=== PATIENT | male | born 1965 | race Caucasian/White ===

== ENCOUNTER 2018-12-04 17:23 | Inpatient (IN) | payer OTHER ==
[~2018-12-04] VITALS: Ht 182.9 cm; Wt 86.2 kg
[2018-12-04 17:58] LABS: BASOPHILS % (AUTO) 0.4 % (0.0-5.0); EOSINOPHILS % (AUTO) 0.8 % (0.0-8.0); LYMPHOCYTES % (AUTO) 13.9 % (21.0-51.0); MEAN CORPUSCULAR HEMOGLOBIN 33.7 pg (27.0-33.0); MEAN CORPUSCULAR HGB CONC 34.7 g/dL (32.0-36.0); MEAN CORPUSCULAR VOLUME 97.3 fL (79-99); MONOCYTES % (AUTO) 12.1 % (3.0-13.0); NEUTROPHILS % (AUTO) 72.8 % (40.0-77.0); NUCLEATED RED BLOOD CELLS 0.1 % (0.0-0.19); PLATELET COUNT (AUTO) 245 K/uL (130-400); RED BLOOD CELL COUNT(AUTO) 6.17 MIL/uL (4.50-6.20); RED CELL DISTRIBUTION WIDTH 13.1 % (11.0-15.5); WHITE BLOOD COUNT (AUTO) 13.1 K/uL (4.8-10.8)
[2018-12-04 18:12] LABS: INR 1.05 (0.85-1.15); PARTIAL THROMBOPLASTIN TIME 26.6 SEC (26.3-35.5)
[2018-12-04] MEDS ORDERED: SODIUM CHLORIDE 0.9% 1000ML 1,000 ML IV ONE ×2 (18:21→20:54)
[2018-12-04 18:24] LABS: AMYLASE 40 U/L (25-115); LIPASE 180 U/L (114-286)
[2018-12-04 18:39] LABS: ALBUMIN 3.4 g/dL (3.5-5.0); BILIRUBIN,TOTAL 1.7 mg/dL (0.2-1.0); CREATININE 2.4 mg/dL (0.5-1.5); TOTAL PROTEIN, SERUM 7.3 g/dL (6.0-8.3)
[2018-12-04 18:42] LABS: POTASSIUM 2.8 mmol/L (3.5-5.1)
[2018-12-04] MEDS ORDERED: M.V.I. IV [ADULT] 10 ML, THIAMINE HCL 100 MG, FOLIC ACID 1 MG in SODIUM CHLORIDE 0.9% 1... IV SCH (18:45)
[2018-12-04] MEDS ORDERED: IPRATROPIUM/ALBUTEROL SULFATE 3 ML SOLUTION IH ONE (18:50)
[2018-12-04 18:55] LABS: APPEARANCE,URINE Cloudy (CLEAR); BILIRUBIN,URINE Moderate (NEGATIVE); COLOR,URINE Dark Yellow (YELLOW); GLUCOSE, URINE (UA) Negative (NEGATIVE); KETONES,URINE Trace mg/dL (NEGATIVE); LEUKOCYTE ESTERASE ,URINE Small (NEGATIVE); NITRATE,URINE Negative (NEGATIVE); OCCULT BLOOD,URINE Small (NEGATIVE); PH,URINE 5.5 (5.0-8.0); PROTEIN,URINE 300 mg/dL (NEGATIVE)
[2018-12-04 19:04] LABS: AMPHET/METH SCREEN,URINE NEGATIVE (NEGATIVE); BARBITURATE SCREEN, URINE NEGATIVE (NEGATIVE); BENZODIAZEPINES SCREEN,URINE NEGATIVE (NEGATIVE); CANNABINOID SCREEN,URINE POSITIVE (NEGATIVE); COCAINE SCREEN,URINE NEGATIVE (NEGATIVE); OPIATE SCREEN,URINE NEGATIVE (NEGATIVE); PHENCYCLIDINE SCREEN,URINE NEGATIVE (NEGATIVE)
[2018-12-04 19:10] LABS: BACTERIA,URINE Moderate /HPF (None Seen); MUCUS,URINE Few LPF (None Seen)
[2018-12-04] MEDS ORDERED: POTASSIUM CHLORIDE 20 MEQ ERTAB PO ONE (19:18)
[2018-12-04] MEDS ORDERED: SODIUM CHLORIDE 0.9% 1000ML 2,000 ML IV ONE (19:18)
[2018-12-04] MEDS ORDERED: CEFTRIAXONE SODIUM 1 GM ONE (19:28)
[2018-12-04] MEDS ORDERED: LEVOFLOXACIN 500 MG/D5W 100 ML 100 ML ONE (19:28)
[2018-12-04] MEDS ORDERED: SODIUM CHLORIDE 0.9% 1000ML 1,000 ML IV SCH (21:00)
[2018-12-04] MEDS ORDERED: LIDOCAINE HCL-MPF 1% 2ML VIAL IJ PRN (21:45)
[2018-12-04] MEDS ORDERED: POTASSIUM CHLORIDE 10% ELIXIR 20 MEQ/15 ML UDCUP PO PRN (21:45)
[2018-12-04 22:30] VITALS: BP 155/105
[2018-12-04] MEDS: POTASSIUM CHLORIDE 20 MEQ ERTAB PO PRN (23:47)
--- NOTE | 2018-12-05 00:17 | NUR ---
PAGED MD LOUIS SPOKE WITH SHAKER WASHER REGARDING COMPLAINT OF PATIENT FOR ACID REFLUX, ANY MEDICATION FOR SLEEPING, AND COUGH/CONGESTION MEDICATION. PATIENT IS ALERT ORIENTED X 4, PT DENIED ANY PAIN.PT DENIED ANY CHEST PAIN, DIZINESS NOR DYSPNEA. NOT IN RESPIRATORY DISTRESS. NO HOME MEDICATION AT BEDSIDE, PENDING TO BE BROUGHT HERE BY RELATIVE. PENDING FOR MD LOUIS TO CALL BACK
[2018-12-05] MEDS: POTASSIUM CHLORIDE 20 MEQ ERTAB PO PRN ×4 (01:44→15:28)
--- NOTE | 2018-12-05 02:00 | NUR ---
KIMMY SULLIVAN SPOKE WITH RN MELINDA FROM ED, PT RECEIVED AND COMPLETED THE ORDERED IV BANANA BAG,
[2018-12-05 03:42] VITALS: BP 154/95
[2018-12-05 04:47] LABS: HEMATOCRIT 51.2 % (42-54); MEAN CORPUSCULAR HEMOGLOBIN 34.4 pg (27.0-33.0); MEAN CORPUSCULAR HGB CONC 35.5 g/dL (32.0-36.0); NUCLEATED RED BLOOD CELLS 0.2 % (0.0-0.19); PLATELET COUNT (AUTO) 207 K/uL (130-400); RED BLOOD CELL COUNT(AUTO) 5.28 MIL/uL (4.50-6.20); RED CELL DISTRIBUTION WIDTH 13.2 % (11.0-15.5); WHITE BLOOD COUNT (AUTO) 9.4 K/uL (4.8-10.8)
[2018-12-05 05:00] LABS: CREATININE 2.2 mg/dL (0.5-1.5)
[2018-12-05 05:07] LABS: POTASSIUM 2.8 mmol/L (3.5-5.1)
[2018-12-05] MEDS: POTASSIUM CHLORIDE 20MEQ/100ML 100 ML IV PRN ×2 (05:27→12:15)
[2018-12-05] MEDS ORDERED: GUAIFENESIN-CODEINE 5 ML SYRUP PO PRN (05:45)
--- NOTE | 2018-12-05 06:00 | NUR ---
md campbell CALLED BACK AFTER MULTIPLE ATTEMPTS PAGING THE ANSWERING SERVICE. INFORMED MD CAMPBELL ABOUT LATEST POTASSIUM 2.8. ASKED MD CAMPBELL IF HE WANTS MAGNESIUM LEVEL, ORDERED MAGNESIUM LEVEL STAT, COUGH MEDICATION PRN, PROTONIX DAILY FOR ACID REFLUX THAT PT IS COMPLAINING, PT DENIED ANY CHEST PAIN NOR SHORTNESS OF BREATHING NOR ANY OTHER PAIN AT THE MOMENT. MD CAMPBELL ORDERED IF MAGNESIUM LEVEL IS <2, REPLACE WITH 2 GM MAGNESIUM IV ONE TIME. 07:00 GAVE REPORT RAMONA GILMORE THAT 1 BAG OF POTASSIUM IS PENDING TO BE GIVEN AFTER THE FIRST BAG THEN RECHECK AFTER AN HOUR AND 1 BAG OF MAGNESIUM IS INFUSING RIGHT NOW LATEST MAGNESIUM WAS <2
[2018-12-05] MEDS ORDERED: MAGNESIUM 2GM PREMIX 50ML 50 ML IV ONE ×2 (06:13→09:30)
[2018-12-05 08:00] VITALS: BP 179/108
[2018-12-05] MEDS ORDERED: PANTOPRAZOLE 40 MG/VIAL IVP SCH (09:00)
[2018-12-05 11:00] VITALS: BP 161/110
[2018-12-05] MEDS ORDERED: LISI40TA4 PO (11:04)
[2018-12-05] MEDS ORDERED: HYDR25TA PO (11:04)
--- NOTE | 2018-12-05 13:43 | NUR ---
CONSULT SPOKE WITH DR. ANDRADE REGARDING CONSULT DUE TO PATIENT COMPLAINING OF NOT BEING ABLE TO SWALLOW PROPERLY. PER DR. ANDRADE WILL LOOK INTO THE CHART AND WILL CALL BACK WITH ORDERS IF NEEDED.
--- NOTE | 2018-12-05 14:10 | NUR ---
INITIAL MET W PATIENT AND SPOUSE FILI WHO WILL SUPPLY TRANSPORT HOME, PT IS VERY HEAVY SMOKE- ROOM REEKS OF SMOKING. 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 NO [facility] Addendum: 12/05/18 at 1511 by ALYCIA SHETH RN Amended: Links added.
[2018-12-05] MEDS: CLONIDINE HCL 0.1 MG TABLET PO PRN (15:45)
[2018-12-05 16:00] VITALS: BP 160/101
[2018-12-05] MEDS ORDERED: ONDANSETRON HCL 4 MG/2 ML VIAL IVP PRN (16:00)
[2018-12-05] MEDS ORDERED: LORAZEPAM 1 MG TABLET PO PRN (16:00)
[2018-12-05] MEDS: SODIUM CHLORIDE 0.9% 1000ML 1,000 ML IV SCH (16:00)
[2018-12-05 17:07] LABS: BASOPHILS % (AUTO) 0.5 % (0.0-5.0); EOSINOPHILS % (AUTO) 1.7 % (0.0-8.0); HEMATOCRIT 42.6 % (42-54); LYMPHOCYTES % (AUTO) 25.1 % (21.0-51.0); MEAN CORPUSCULAR HEMOGLOBIN 34.2 pg (27.0-33.0); MEAN CORPUSCULAR HGB CONC 35.1 g/dL (32.0-36.0); MEAN CORPUSCULAR VOLUME 97.5 fL (79-99); MONOCYTES % (AUTO) 12.6 % (3.0-13.0); NEUTROPHILS % (AUTO) 60.1 % (40.0-77.0); PLATELET COUNT (AUTO) 172 K/uL (130-400); RED BLOOD CELL COUNT(AUTO) 4.37 MIL/uL (4.50-6.20); RED CELL DISTRIBUTION WIDTH 13.1 % (11.0-15.5); WHITE BLOOD COUNT (AUTO) 6.5 K/uL (4.8-10.8)
[2018-12-05 17:13] LABS: CREATININE 1.2 mg/dL (0.5-1.5); POTASSIUM 5.1 mmol/L (3.5-5.1)
[2018-12-05 17:15] LABS: INR 1.22 (0.85-1.15); PROTHROMBIN TIME 12.7 SEC (9.6-11.6)
[2018-12-05 20:00] VITALS: BP 135/94
[2018-12-05] MEDS: CEFTRIAXONE SODIUM 1 GM IVP SCH (20:48)
[2018-12-05] MEDS: LEVOFLOXACIN 250 MG/D5W 50ML 50 ML IVPB SCH (20:48)
[2018-12-05 23:53] VITALS: BP 153/99
[2018-12-06] VITALS (20 sets, daily range): BP systolic 93–177; BP diastolic 69–108
[2018-12-06] MEDS: SODIUM CHLORIDE 0.9% 1000ML 1,000 ML IV SCH (04:35)
[2018-12-06 04:55] LABS: ALBUMIN 2.6 g/dL (3.5-5.0); BILIRUBIN,TOTAL 0.6 mg/dL (0.2-1.0); CREATININE 1.8 mg/dL (0.5-1.5); MAGNESIUM 2.1 mg/dL (1.80-2.40); PHOSPHORUS 2.2 mg/dL (2.5-4.9); POTASSIUM 3.7 mmol/L (3.5-5.1); TOTAL PROTEIN, SERUM 5.8 g/dL (6.0-8.3)
[2018-12-06] MEDS ORDERED: FAMOTIDINE/PF 20 MG/2 ML VIAL IV SCH (09:00)
[2018-12-06] MEDS: CLONIDINE HCL 0.1 MG TABLET PO PRN ×2 (09:03→17:57)
[2018-12-06] MEDS: AMLODIPINE BESYLATE 5 MG TAB PO SCH (09:03)
[2018-12-06] MEDS ORDERED: PROPOFOL 10 MG/ML 20ML VIAL IV ONE (10:35)
[2018-12-06] MEDS: PANTOPRAZOLE SODIUM 40 MG TABLET.DR PO SCH (16:51)
[2018-12-06] MEDS: POTASSIUM CHLORIDE 20 MEQ ERTAB PO PRN (16:52)
[2018-12-06] MEDS: LEVOFLOXACIN 250 MG/D5W 50ML 50 ML IVPB SCH (21:28)
[2018-12-06] MEDS: CEFTRIAXONE SODIUM 1 GM IVP SCH (21:28)
[2018-12-07] VITALS: BP 160/88
[2018-12-07] MEDS: SODIUM CHLORIDE 0.9% 1000ML 1,000 ML IV SCH ×2 (03:55→15:04)
[2018-12-07 04:00] VITALS: BP 146/93
[2018-12-07 04:53] LABS: EOSINOPHILS % (AUTO) 3.3 % (0.0-8.0); HEMATOCRIT 47.3 % (42-54); LYMPHOCYTES % (AUTO) 30.6 % (21.0-51.0); MEAN CORPUSCULAR HEMOGLOBIN 34.3 pg (27.0-33.0); MEAN CORPUSCULAR HGB CONC 34.7 g/dL (32.0-36.0); MONOCYTES % (AUTO) 10.7 % (3.0-13.0); NEUTROPHILS % (AUTO) 54.4 % (40.0-77.0); PLATELET COUNT (AUTO) 196 K/uL (130-400); RED BLOOD CELL COUNT(AUTO) 4.78 MIL/uL (4.50-6.20); RED CELL DISTRIBUTION WIDTH 13.1 % (11.0-15.5); WHITE BLOOD COUNT (AUTO) 8.2 K/uL (4.8-10.8)
[2018-12-07 05:09] LABS: CREATININE 1.6 mg/dL (0.5-1.5); POTASSIUM 3.1 mmol/L (3.5-5.1)
[2018-12-07] MEDS: PANTOPRAZOLE SODIUM 40 MG TABLET.DR PO SCH ×2 (06:44→17:07)
[2018-12-07 07:52] VITALS: BP 149/105
[2018-12-07] MEDS: SUCRALFATE 1 GM/10 ML PO SCH ×4 (09:17→21:04)
[2018-12-07] MEDS: AMLODIPINE BESYLATE 5 MG TAB PO SCH (09:17)
[2018-12-07] MEDS: POTASSIUM CHLORIDE 20 MEQ ERTAB PO PRN ×2 (10:33→17:06)
[2018-12-07 11:00] VITALS: BP 180/103
[2018-12-07] MEDS: CLONIDINE HCL 0.1 MG TABLET PO PRN ×2 (11:04→17:09)
[2018-12-07 15:50] VITALS: BP 167/108
[2018-12-07 20:05] VITALS: BP 146/97
--- NOTE | 2018-12-07 20:50 | NUR ---
MD LOUIS ROUNDED: Seen and examined pt. New new order.
[2018-12-07] MEDS: CEFTRIAXONE SODIUM 1 GM IVP SCH (21:04)
[2018-12-07] MEDS: LEVOFLOXACIN 250 MG/D5W 50ML 50 ML IVPB SCH (21:04)
[2018-12-08] VITALS (7 sets, daily range): BP systolic 148–180; BP diastolic 90–108
[2018-12-08] MEDS: CLONIDINE HCL 0.1 MG TABLET PO PRN (03:36)
[2018-12-08] MEDS: SODIUM CHLORIDE 0.9% 1000ML 1,000 ML IV SCH (06:56)
[2018-12-08] MEDS: PANTOPRAZOLE SODIUM 40 MG TABLET.DR PO SCH ×2 (06:57→16:55)
[2018-12-08] MEDS: AMLODIPINE BESYLATE 5 MG TAB PO SCH (09:56)
[2018-12-08] MEDS: SUCRALFATE 1 GM/10 ML PO SCH ×3 (09:56→16:56)
--- NOTE | 2018-12-08 20:20 | NUR ---
PATIENT GIVEN DISCHARGE ORDERS AND VERBALIZED UNDERSTANDING, IV REMOVED WITH CATHETER INTACT PRESSURE HELD ON SITE TILL BLEEDING STOPPED AND THEN SITE DRESSED, REVIEWED MEDICATIONS TO CONTINUE AND NEW ONES AND FOLLOW-UP APPOINTMENT FOR DR LOUIS PATIENT AGREED TO CALL DR LOUIS OFFICE FOR APPOINTMENT , NO QUESTIONS OR CONCERN VIOVED AND PATIENT AND WALKED WITH STAFF TO LOBBY AND LEFT FOR HOME.
== END 2018-12-08 20:20 | disposition home or self-care (01) | DRG 392 ==
LOC: EDH 17:23 → EDHIP 17:24 → 3AH 21:14
PROVIDERS: ADMIT Internal Medicine; ATTEND Internal Medicine
PROC: 0DB48ZX Excision of Esophagogastric Junction, Via Natural or Artificial Opening Endoscopic, Diagnostic (ICD-10-PCS; principal; 2018-12-06)
DX: K21.0 Gastro-esophageal reflux disease with esophagitis (principal); K29.70 Gastritis, unspecified, without bleeding; I12.9 Hypertensive chronic kidney disease with stage 1 through stage 4 chronic kidney disease, or unspecified chronic kidney disease; E87.6 Hypokalemia; F10.10 Alcohol abuse, uncomplicated; R13.12 Dysphagia, oropharyngeal phase; F17.210 Nicotine dependence, cigarettes, uncomplicated; E11.65 Type 2 diabetes mellitus with hyperglycemia; E11.22 Type 2 diabetes mellitus with diabetic chronic kidney disease; N18.9 Chronic kidney disease, unspecified; K22.719 Barrett's esophagus with dysplasia, unspecified; K22.8 Other specified diseases of esophagus; Y90.0 Blood alcohol level of less than 20 mg/100 ml
CPT/HCPCS: 36415; 43239; 71045; 71250; 74150; 76705; 80048; 80053; 80305; 81001; 82150; 82330; 82550; 82948; 83605; 83690; 83735; 83970; 84100; 84132; 84484; 85025; 85027; 85610; 85730; 87040; 87804; 87880; 93005; 94640; C9113; G0378; G0480; J0696; J1956; J2704; J3411; J3475; J3480; J3490; J7030